=== PATIENT | male | born 1950 | race Caucasian/White ===

== ENCOUNTER 2017-03-16 12:25 | Observation (INO) | payer OTHER ==
[~2017-03-16] VITALS: Ht 175.3 cm; Wt 134.0 kg
[2017-03-16 13:16] LABS: CREATININE 0.9 mg/dL (0.6-1.3)
[2017-03-16 13:25] LABS: EOSINOPHIL (%) 1.3 % (0-5); EOSINOPHIL COUNT 0.2 K/uL (0-0.3); HEMATOCRIT 45.8 % (38.0-50.0); IMMATURE GRANULOCYTE (%) 1.4 % (0.0-0.7); IMMATURE GRANULOCYTE COUNT 0.2 K/uL; INSTRUMENT ABS NEUTROPHIL CT 12.1 K/uL; LYMPHOCYTE COUNT 1.6 K/uL (1.0-2.8); MCH 28.9 PG (29.0-34.0); MCV 87.6 FL (86-99); MEAN PLAT.VOLUME 11.4 uM^3 (9.0-12.4); MONOCYTE (%) 6.1 % (3-12); MONOCYTE COUNT 0.9 K/uL (0-0.8); NEUTROPHIL (%) 80.3 % (45-76); NEUTROPHIL COUNT 12.1 K/uL (1.8-6.4); PLATELET COUNT 205 K/uL (156-360); RBC DIS.WIDTH-CV 13.3 % (11.8-14.6); RED BLOOD COUNT 5.23 M/uL (4.00-5.50); WHITE BLOOD COUNT 15.1 K/uL (4.1-10.2)
[2017-03-16] MEDS ORDERED: PLAVIX75 MG PO (14:53)
[2017-03-16] MEDS ORDERED: ASPIRIN81 M2 PO (14:53)
[2017-03-16] MEDS ORDERED: FLUOXETINE HCL40 MG PO (14:54)
[2017-03-16] MEDS ORDERED: CENTRUM SILVER1 EAC3 PO (14:54)
[2017-03-16] MEDS ORDERED: CRESTOR40 MG PO (14:54)
[2017-03-16] MEDS ORDERED: METOPROLOL TART25 MG PO (14:55)
[2017-03-16] MEDS ORDERED: LISINOPRIL2.5 MG PO (14:55)
[2017-03-16] MEDS ORDERED: SUPER B-50 COM1 EACH PO (14:56)
[2017-03-16] MEDS ORDERED: VITAMIN D32000 UNI1 PO (14:56)
[2017-03-16] MEDS ORDERED: WELCHOL625 MG PO (14:57)
[2017-03-16 15:15] LABS: INTER. NORMALIZED RATIO 1.1; PROTHROMBIN TIME 10.7 (9.2-11.2)
[2017-03-16 15:16] LABS: CHLORIDE 105 mEq/L (99-109); POTASSIUM 4.4 mEq/L (3.7-5.4); SODIUM 140 mEq/L (136-147)
[2017-03-16 15:18] LABS: GLUCOSE 134 mg/dL (70-99)
[2017-03-16 15:19] LABS: ANION GAP 13 MEQ/L (2-14)
[2017-03-16 15:22] LABS: GFR ESTIMATE (CALCULATED) > 59 mL/min/; UREA NITROGEN (BUN) 16 mg/dL (9-23)
[2017-03-16] MEDS ORDERED: PROAIR HFA8.5 GM IH (18:49)
[2017-03-17 00:11] LABS: ADD MIUA? YES; BILIRUBIN NEGATIVE; BLOOD NEGATIVE; COLOR AMBER ((YELLOW)); GLUCOSE (STRIP) NEGATIVE; KETONES NEGATIVE; LEUKOCYTES NEGATIVE; NITRITE NEGATIVE; PROTEIN (STRIP) 30; UROBILINOGEN 0.2 MG/DL (0.2-1.0)
[2017-03-17 00:24] VITALS: BP 148/65
[2017-03-17 00:36] LABS: TROP-I INTERPRETATION NEGATIVE; TROPONIN-I < 0.01 ng/mL (0.0-0.30)
[2017-03-17 01:01] LABS: BACTERIA RARE /HPF; CASTS NONE SEEN /LPF; CRYSTALS NONE SEEN; EPITHELIAL CELLS RARE /HPF; MUCUS NONE SEEN /LPF; RED BLOOD CELLS RARE /HPF (0-5); UCUL ADDED? NO; WHITE BLOOD CELLS NONE SEEN /HPF (0-5)
[2017-03-17 01:08] LABS: SPECIFIC GRAVITY 1.064 (1.000-1.030)
[2017-03-17 03:46] VITALS: BP 128/64
[2017-03-17 04:52] LABS: HEMATOCRIT 39.6 % (38.0-50.0); MCH 28.8 PG (29.0-34.0); MCHC 32.8 G/DL (30.0-36.0); MCV 87.6 FL (86-99); MEAN PLAT.VOLUME 9.3 uM^3 (9.0-12.4); PLATELET COUNT 185 K/uL (156-360); RBC DIS.WIDTH-CV 13.2 % (11.8-14.6); RBC DIS.WIDTH-SD 42.2 % (39-53); RED BLOOD COUNT 4.52 M/uL (4.00-5.50); WHITE BLOOD COUNT 12.3 K/uL (4.1-10.2)
[2017-03-17 05:13] LABS: CHLORIDE 104 mEq/L (99-109); POTASSIUM 4.2 mEq/L (3.7-5.4); SODIUM 137 mEq/L (136-147); TROP-I INTERPRETATION NEGATIVE; TROPONIN-I < 0.01 ng/mL (0.0-0.30)
[2017-03-17 05:15] LABS: GLUCOSE 146 mg/dL (70-99)
[2017-03-17 05:17] LABS: ANION GAP 11 MEQ/L (2-14)
[2017-03-17 05:19] LABS: GFR ESTIMATE (CALCULATED) > 59 mL/min/
[2017-03-17 05:20] LABS: UREA NITROGEN (BUN) 14 mg/dL (9-23)
[2017-03-17 09:10] VITALS: BP 127/64
[2017-03-17 11:44] VITALS: BP 109/57
[2017-03-17] MEDS ORDERED: TRAMADOL HCL50 MG PO (11:44)
[2017-03-17] MEDS ORDERED: ENDOCET 5-3251 EACH PO (11:44)
[2017-03-17] MEDS ORDERED: PEPCID20 MG PO (14:46)
[2017-03-17] MEDS ORDERED: HEPARIN SO5000 UNIT3 SC (14:47)
[2017-03-17] MEDS ORDERED: LACTATED RING1000 ML IV (14:50)
[2017-03-17] MEDS ORDERED: PAIN RELIEF325 M1 PO (14:51)
[2017-03-17] MEDS ORDERED: ZOFRAN4 MG/2 ML IV (14:52)
[2017-03-17] MEDS ORDERED: ANCEF,KEFZ1 GM/50 ML IV (14:55)
== END 2017-03-17 13:37 ==
LOC: EME → EDBD 12:25 → EME 12:25 → 5WEST 22:43 → EDOF 22:43 → 5WEST 03-17 00:10
PROVIDERS: Emergency Medicine; Hospitalist
PROC: 0HQ0XZZ Repair Scalp Skin, External Approach (ICD-10-PCS; principal; 2017-03-16)
DX: S01.01XA Laceration without foreign body of scalp, initial encounter (principal); W13.8XXA Fall from, out of or through other building or structure, initial encounter; Y93.9 Activity, unspecified; S40.012A Contusion of left shoulder, initial encounter; I95.9 Hypotension, unspecified; E87.2 Acidosis; I25.10 Atherosclerotic heart disease of native coronary artery without angina pectoris; G47.30 Sleep apnea, unspecified; J44.9 Chronic obstructive pulmonary disease, unspecified; R09.02 Hypoxemia; E66.9 Obesity, unspecified; Z68.41 Body mass index [BMI] 40.0-44.9, adult; Z95.1 Presence of aortocoronary bypass graft
CPT/HCPCS: 70450; 71260; 72125; 72129; 72132; 73030; 74177; 80047; 80048; 81003; 83605; 84484; 85025; 85027; 85610; 87040; 93005; 99281; 99285; G0378; G8978 GP CK; G8979 CJ; J0690; J1644; J2270; J2405; J7120

== ENCOUNTER 2017-03-17 11:53 | Inpatient (IN) | payer OTHER ==
[~2017-03-17] VITALS: Ht 170.2 cm; Wt 133.2 kg
[~2017-03-17 11:53] MED LIST: ASPIRIN81 M2 PO; CENTRUM SILVER1 EAC3 PO; CRESTOR40 MG PO; ENDOCET 5-3251 EACH PO; FLUOXETINE HCL40 MG PO; LISINOPRIL2.5 MG PO; METOPROLOL TART25 MG PO; PLAVIX75 MG PO; PROAIR HFA8.5 GM IH; SUPER B-50 COM1 EACH PO; TRAMADOL HCL50 MG PO; VITAMIN D32000 UNI1 PO; WELCHOL625 MG PO
[2017-03-17 13:35] VITALS: BP 132/65
[2017-03-17] MEDS ORDERED: PEPCID20 MG PO (14:46)
[2017-03-17] MEDS ORDERED: HEPARIN SO5000 UNIT3 SC (14:47)
[2017-03-17] MEDS ORDERED: LACTATED RING1000 ML IV (14:50)
[2017-03-17] MEDS ORDERED: PAIN RELIEF325 M1 PO (14:51)
[2017-03-17] MEDS ORDERED: ZOFRAN4 MG/2 ML IV (14:52)
[2017-03-17] MEDS ORDERED: ANCEF,KEFZ1 GM/50 ML IV (14:55)
[2017-03-17 15:25] VITALS: BP 103/55
[2017-03-18 04:23] VITALS: BP 141/64
[2017-03-18 05:37] LABS: HEMATOCRIT 36.7 % (38.0-50.0); MCH 28.7 PG (29.0-34.0); MCHC 32.4 G/DL (30.0-36.0); MCV 88.4 FL (86-99); MEAN PLAT.VOLUME 9.6 uM^3 (9.0-12.4); PLATELET COUNT 157 K/uL (156-360); RBC DIS.WIDTH-SD 42.2 % (39-53); RED BLOOD COUNT 4.15 M/uL (4.00-5.50); WHITE BLOOD COUNT 12.8 K/uL (4.1-10.2)
[2017-03-18 06:05] LABS: ALKALINE PHOSPHATASE 44 IU/L (3-129); ANION GAP 8 MEQ/L (2-14); CHLORIDE 99 MEQ/L (99-109); GFR ESTIMATE (CALCULATED) > 59 mL/min/; GLUCOSE 150 mg/dL (70-99); POTASSIUM 3.9 MEQ/L (3.7-5.4); SAMPLE HEMOLYSIS CHECK 0; SAMPLE ICTERIC CHECK 0; SAMPLE LIPEMIA CHECK 0; SODIUM 136 MEQ/L (136-147); TOTAL BILIRUBIN 0.6 MG/DL (0.0-1.0); UREA NITROGEN (BUN) 13 mg/dL (9-23)
[2017-03-18 15:40] VITALS: BP 127/63
[2017-03-19 05:27] VITALS: BP 125/66
[2017-03-19 10:25] VITALS: BP 144/67
[2017-03-19 15:30] VITALS: BP 117/67
[2017-03-20 04:34] VITALS: BP 134/72
[2017-03-20 15:00] VITALS: BP 129/58
[2017-03-21 04:59] VITALS: BP 171/74
[2017-03-21 15:53] VITALS: BP 148/74
[2017-03-22 05:25] VITALS: BP 147/80
[2017-03-22 15:10] VITALS: BP 117/69
[2017-03-23 04:47] LABS: HEMATOCRIT 38.5 % (38.0-50.0); MCHC 32.7 G/DL (30.0-36.0); MCV 88.5 FL (86-99); MEAN PLAT.VOLUME 9.3 uM^3 (9.0-12.4); NRBC (%) 0.5 /100 WBC (0-0); RBC DIS.WIDTH-CV 13.3 % (11.8-14.6); RBC DIS.WIDTH-SD 43.3 % (39-53); RED BLOOD COUNT 4.35 M/uL (4.00-5.50)
[2017-03-23 04:48] LABS: PLATELET COUNT 265 K/uL (156-360)
[2017-03-23 04:52] LABS: CHLORIDE 100 mEq/L (99-109); POTASSIUM 3.7 mEq/L (3.7-5.4); SODIUM 140 mEq/L (136-147)
[2017-03-23 04:54] LABS: GLUCOSE 107 mg/dL (70-99)
[2017-03-23 04:55] LABS: ANION GAP 9 MEQ/L (2-14)
[2017-03-23 04:57] LABS: ALKALINE PHOSPHATASE 52 IU/L (3-129)
[2017-03-23 04:58] LABS: GFR ESTIMATE (CALCULATED) > 59 mL/min/
[2017-03-23 04:59] LABS: UREA NITROGEN (BUN) 17 mg/dL (9-23)
[2017-03-23 05:02] VITALS: BP 134/68
[2017-03-23 08:24] VITALS: BP 112/58
[2017-03-23 15:45] VITALS: BP 123/58
[2017-03-23] MEDS ORDERED: ADVAIR HFA120 INHALA IH (19:42)
[2017-03-23] MEDS ORDERED: LISINOPRIL2.5 MG PO (19:42)
[2017-03-23] MEDS ORDERED: PROAIR HFA8.5 GM IH (19:42)
[2017-03-23] MEDS ORDERED: SPIRIVA RESPIMAT4 GM IH (19:42)
[2017-03-23] MEDS ORDERED: FAMOTIDINE40 MG PO (19:42)
[2017-03-23] MEDS ORDERED: PREDNISONE20 MG PO (19:42)
[2017-03-23] MEDS ORDERED: SENNA LAX8.6 MG PO (19:42)
[2017-03-24 05:00] VITALS: BP 145/67
== END 2017-03-24 14:22 | disposition home health service (06) | DRG 92 ==
LOC: 3WEST 11:53
PROVIDERS: Physical Medicine & Rehabilitation Pain Medicine
DX: R26.9 Unspecified abnormalities of gait and mobility (principal); G89.18 Other acute postprocedural pain; S01.01XD Laceration without foreign body of scalp, subsequent encounter; M79.1 Myalgia; M47.9 Spondylosis, unspecified; E66.9 Obesity, unspecified; Z68.42 Body mass index [BMI] 45.0-49.9, adult; G47.33 Obstructive sleep apnea (adult) (pediatric); J44.1 Chronic obstructive pulmonary disease with (acute) exacerbation; F32.9 Major depressive disorder, single episode, unspecified; F41.9 Anxiety disorder, unspecified; I25.10 Atherosclerotic heart disease of native coronary artery without angina pectoris; Z95.1 Presence of aortocoronary bypass graft; Z95.5 Presence of coronary angioplasty implant and graft; T38.0X5A Adverse effect of glucocorticoids and synthetic analogues, initial encounter; Y92.239 Unspecified place in hospital as the place of occurrence of the external cause; D72.829 Elevated white blood cell count, unspecified; E83.51 Hypocalcemia; N28.1 Cyst of kidney, acquired; J44.0 Chronic obstructive pulmonary disease with (acute) lower respiratory infection; J20.9 Acute bronchitis, unspecified; S33.9XXD Sprain of unspecified parts of lumbar spine and pelvis, subsequent encounter; W17.89XD Other fall from one level to another, subsequent encounter; Z87.891 Personal history of nicotine dependence; Z91.19 Patient's noncompliance with other medical treatment and regimen; R53.1 Weakness
CPT/HCPCS: 71010; 71020; 80053; 85027; 94640; 94640 76; 94660; 94799; 97110 GO; 97530 GP; 99202; J1650; J7512; Q0169